=== PATIENT | female | born 1950 ===

== ENCOUNTER 2018-06-07 00:53 | Inpatient (IN) | payer MEDICARE ==
[2018-06-06 13:45] LABS: INR 0.95
[2018-06-07] VITALS (10 sets, daily range): BP systolic 100–136; BP diastolic 66–96
[~2018-06-07] VITALS: Ht 157.5 cm; Wt 134.3 kg
[~2018-06-07 00:53] MED LIST: ACET500T68 PO; HYDR-2966 PO; LEVO112T44 PO; LEVO25TA57 PO; LOSA50TA74 PO; NABU-95 PO; VENL75CA58 PO
[2018-06-07] MEDS ORDERED: CELECOXIB 200 MG CAP PO ONE (06:45)
[2018-06-07] MEDS ORDERED: MIDAZOLAM 2 MG/2 ML VIAL IVP PRN (06:45)
[2018-06-07] MEDS ORDERED: NORMOSOL R SOLN(*) 1000 ML BAG 1,000 ML IV PRN (06:45)
[2018-06-07] MEDS ORDERED: TRANEXAMIC AC 1000 MG/10ML SDV 1,000 MG in DEXTROSE 5% 50 ML BAG 50 ML IV ONE (06:45)
[2018-06-07] MEDS ORDERED: FAMOTIDINE 20 MG TAB PO ONE (06:45)
[2018-06-07] MEDS ORDERED: cloNIDine EPIDUR INJ 100MCG/ML 40 MCG, ROPIVACAINE 0.5% 20 ML VIAL 25 ML, EPINEPHrine H... INJ ONE (06:45)
[2018-06-07] MEDS ORDERED: BACITRACIN 50000 UNIT/VIAL 100,000 UNIT in NS 0.9% 3000 ML IRRIGATION BAG 3,000 ML IR ONE (06:45)
[2018-06-07] MEDS ORDERED: PREGABALIN 150 MG CAPSULE PO ONE (06:45)
[2018-06-07] MEDS ORDERED: ceFAZolin(*) 2GM/D5W 50ML 50 ML IVPB ONE (06:45)
[2018-06-07] MEDS ORDERED: ACETAMINOPHEN 500 MG TAB PO ONE (06:45)
[2018-06-07] MEDS ORDERED: LIDOCAINE/SOD BICARB 8.4% SYR ID ONE (06:45)
[2018-06-07] MEDS ORDERED: fentaNYL CITR 100 MCG/2 ML AMP ONE ×2 (07:12→08:27)
[2018-06-07] MEDS ORDERED: PROPOFOL EMUL(*) 10MG/ML 20 ML 20 ML ONE (07:13)
[2018-06-07] MEDS ORDERED: LIDOCAINE 2% IV 100 MG/5ML SYR ONE (07:13)
[2018-06-07] MEDS ORDERED: DEXAMETHASONE SOD PHOS 10MG/ML ONE (07:44)
[2018-06-07] MEDS ORDERED: ONDANSETRON 4 MG/2 ML VIAL ONE (07:44)
[2018-06-07] MEDS ORDERED: KETAMINE HCL 200 MG/20 ML MDV ONE ×2 (07:49→08:46)
[2018-06-07] MEDS ORDERED: NS 0.9% IRRIGATION 1000ML PLCT IR ONE (08:18)
[2018-06-07] MEDS ORDERED: BISACODYL 10 MG SUPP PR PRN (10:00)
[2018-06-07] MEDS ORDERED: FLUSH 10 ML SYR IVP PRN (10:00)
[2018-06-07] MEDS ORDERED: MAGNESIUM HYDROXIDE* 30ML UDCP PO PRN (10:00)
[2018-06-07] MEDS ORDERED: diphenhydrAMINE 25 MG CAP PO PRN (10:00)
[2018-06-07] MEDS ORDERED: MAGNESIUM CITRATE 300 ML BTL PO PRN (10:00)
[2018-06-07] MEDS ORDERED: ONDANSETRON 4 MG/2 ML VIAL IVP PRN (10:00)
[2018-06-07] MEDS ORDERED: PROMETHAZINE 25 MG/ML 1 ML AMP IVP PRN (10:00)
[2018-06-07] MEDS ORDERED: diphenhydrAMINE 50 MG/ML VIAL IVP PRN (10:00)
[2018-06-07] MEDS ORDERED: LR 1000 ML BAG 1000 ML IV PRN (10:00)
[2018-06-07] MEDS ORDERED: ZOLPIDEM TARTRATE 5 MG TAB PO PRN (10:00)
--- NOTE | 2018-06-07 11:34 | RADIOLOGY IMAGING REPORT ---
[place] [facility] [place]: Emilia Sanchez : 1950 MR: [id number] V: [id number] EXAM DATE: ORDERING PHYSICIAN: JACQUI FERREIRA TECHNOLOGIST: [place] [facility] [place] Em[place] : 1950 Visit/Account:[id number] Date of Sevice: 06/07/2018 Exam type: KNEE LIMITED RIGHT History: POST-OP RIGHT TKA Comparison: None. Findings: AP and lateral views of the right knee demonstrate a right knee arthroplasty in good anatomic limits. Soft tissue gas projects over the anterior aspect of this postoperative knee IMPRESSION: 1. As above Report Dictated By: Jolly Cook MD at 06/07/2018 11:29 AM Report E-Signed By: Jolly Cook MD at 06/07/2018 11:30 AM WSN:[email or web address]
[2018-06-07] MEDS ORDERED: ACET-1966 PO (11:58)
--- NOTE | 2018-06-07 12:23 | OPERATIVE REPORT 1 ---
EVENT DATE: June 07, 2018 SURGEON: Saurabh Avila MD ANESTHESIOLOGIST: Raza Gómez MD ANESTHESIA: General plus spinal. TEMPER MILL OPERATOR: Manolo Nunez PA-C PREOPERATIVE DIAGNOSIS Right knee osteoarthritis. POSTOPERATIVE DIAGNOSIS Right knee osteoarthritis. PROCEDURE PERFORMED Right total knee arthroplasty. FINDINGS The patient had a significant amount of arthritic changes within the knee. ESTIMATED BLOOD LOSS About 250 mL. DRAINS None. SPECIMENS [*] COMPLICATIONS None. TOURNIQUET TIME About 17 minutes only up during cementation. IMPLANTS USED [employer] Buysight posterior stabilized femur which was a size 7, with a size 7 x 5 rotating platform, posterior stabilized baseplate, a 6 rotating platform tibia, and a 35 mm anatomic patella. SPECIMENS None. INDICATIONS AND HISTORY This patient is a 68-year-old female that presented to my clinic for evaluation of knee pain and irrigation going on for some time. Her right knee was worse than her left and so she wanted to go ahead with a right total knee arthroplasty today 06/07/2018. The risk and benefits were discussed with the patient and informed consent was obtained at the last clinic visit. We talked about how with her obesity and overweight aspects, it may not last forever and she may continue to have problems and issues associated with it and she said she understood that. DESCRIPTION OF PROCEDURE As the patient was brought in the operating room, she and the procedure were both verified. She was placed supine on the operating table after being given a spinal by anesthesia and was induced and intubated. A timeout was observed verifying the correct patient and procedure after the right leg was prepped and draped in the usual fashion. The standard incision was made over the anterior aspect of the knee, taken through the skin and subcutaneous tissue where there was a significant amount of subcutaneous tissue in this area. We then were able to get down to the medial parapatellar approach and were able to go through the medial parapatellar approach without any difficulty. We then subluxed the knee cap to the lateral side and was able to go in and cut the anterior aspect of the menisci on both sides and also the anterior fat pad from underneath the patella. I also removed some of the synovitis on the superior aspect just above the femur. I then was able to flex the knee up and mike the patella and then removed some of the osteophytes and the rest of the ACL and the initial portion of the PCL. I then was able to take a rongeur and then clear off the essential portion, drilled the central canal for the intramedullary guide from the Attune system. Once I was able to drive the madeline through the middle portion, I was then able to set it on the standard [id number] cutting jig for the Attune system and cut the distal femur without any difficulty. I then sized the femur to a 7 and then put on the standard 7 four-in-one cutting block, cut all four cuts without any difficulty and then put on the notch plate and cut the notch without any major issues. I was then able to remove the PCL and the posterior aspect of the menisci and a little bit more of the lateral surface and then some of the osteophytes off the tibia. I then was able to drill the central portion of the tibial in the intramedullary aspect using the intramedullary guide once again to cut a couple of millimeters of the medial side. Once I was able to do this, I then was able to size the tibia to a size 6 tibia and then prepped the tibia without any difficulty. I then removed a significant amount of posterior osteophytes, especially on the medial side, but once I got the posterior osteophytes off of this area it looked significant better and there was better motion associated with the flexion and extension of knee. I then put on the trial components without any major difficulty and had good flexion and extension with a 5 mm poly. I then turned attention to the patella where I was able to cut the patella 9.5 mm off the patella without any difficulty. It was then sized to a 35 and then after placing a 35 trial on it tracked well with no external pressures through the patellar groove. I then was able to irrigate with copious amounts of saline with pulsatile lavage which I had throughout the case and then put up tourniquet, cemented the final components in place and then let the tourniquet down after about 17 minutes. I then closed the medial parapatellar approach with a #2 Stratafix, then followed by 2-0 Vicryl in the subcutaneous fat and then a 2-0 Stratafix in the subcuticular fashion and then a subcuticular running Monocryl which was 4-0 and then a bio-occlusive dressing. the patient was then awakened and extubated and transferred to the PACU in stable condition where she will be admitted overnight. CHEL
--- NOTE | 2018-06-07 13:17 | Hospitalist Consultation ---
History of Present Illness Requesting Physician Dr. Avila Reason for Consult Medical Management Chief Complaint s/p right knee replacement History of Present Illness She was admitted s/p right knee replacement. It is reported the surgery went well and without complication. History Problems: (1) Hypertension Status: Chronic (2) Hypothyroidism Status: Chronic (3) ROLANDO (obstructive sleep apnea) Status: Chronic (4) Depression Status: Chronic Home Meds Reported Medications Acetaminophen (TYLENOL) 325 Mg Tablet, 650 MG PO PRN, TAB 06/07/18 Levothyroxine Sodium (SYNTHROID) 112 Mcg Tablet, 2 TAB PO QDAY, TAB 05/31/18 Levothyroxine Sodium (SYNTHROID) 25 Mcg Tablet, 0.5 TAB PO QDAY 05/31/18 Losartan Potassium (LOSARTAN POTASSIUM) 50 Mg Tablet, 50 MG PO QDAY 05/31/18 Venlafaxine Hcl (EFFEXOR XR) 75 Mg Cap.er.24h, 3 TAB PO QDAY 05/31/18 Hydrochlorothiazide (HYDROCHLOROTHIAZIDE) 25 Mg Tablet, 1 TAB PO QDAY, TAB 05/31/18 Nabumetone (NABUMETONE) 750 Mg Tablet, 750 MG PO BID 05/31/18 Discontinued Reported Medications Acetaminophen (TYLENOL EXTRA STRENGTH) 500 Mg Tablet, 650 MG PO PRN, TAB 05/31/18 Allergies: Coded Allergies: No Known Drug Allergies (Unverified , 05/31/18) Patient History: FH: COPD (chronic obstructive pulmonary disease) MOTHER, FH: lung disease FATHER, Hx Smoking: Yes (1 PPD DAILY FOR 13 YRS QUIT IN 1988) Smoking Status: Former Smoker Caffeine Intake: Coffee, Soda Caffeine/Cups Per Day: 2 CUPS DAILY, 32 OUNCES DAILY Hx Alcohol Use: Yes Hx Substance Use Disorder: No Social Drug Use: Never History of IV Drug Use: No Review of Systems All Systems Reviewed/Normal: Yes, Except as Noted Exam Vital Signs Vital Signs Date Time Temp Pulse Resp B/P (MAP) Pulse Ox O2 Delivery O2 Flow Rate FiO2 06/07/18 13:00 76 136/78 (97) 93 06/07/18 12:03 Nasal Cannula 3.0 06/07/18 11:51 96.4 16 General Appearance: No Acute Distress, Afebrile Cardiovascular: Regular Rate and Rhythm Respiratory: No Respiratory Distress, Clear to Auscultation Psych: Other (patient sleeping through exam) Assessment and Plan Problems: (1) Status post right knee replacement Status: Acute Assessment & Plan: Followed by Dr. Avila. She will be placed on Aspirin for VTE prophylaxis. She has no history of DVT or PE. (2) Hypertension Status: Chronic Assessment & Plan: She is on chronic treatment with Losartan and Hydrochlorothiazide. Losartan has been restarted with hold parameters. (3) Hypothyroidism Status: Chronic Assessment & Plan: She is on chronic treatment with Levothyroxine. (4) Depression Status: Chronic Assessment & Plan: She is on chronic treatment with Effexor. (5) ROLANDO (obstructive sleep apnea) Status: Chronic Assessment & Plan: She did bring her own CPAP machine to use during admission. Venous Thromboembolism Antithrombotics Is Pt On Any Antithrombotics?: No Exam Sepsis Risk: No Definite Risk Problem Qualifiers (1) Hypertension: Hypertension type: essential hypertension Qualified Codes: I10 - Essential (primary) hypertension MENDY TOWNSENDP Jun 07, 2018 13:17
[2018-06-07] MEDS: ceFAZolin(*) 2GM/D5W 50ML 50 ML IVPB SCH (17:12)
[2018-06-07] MEDS: HYDROmorphone HCL 2 MG/ML SDV IVP PRN (17:19)
[2018-06-07] MEDS ORDERED: NS(*) 0.9% 250 ML BAG 250 ML ONE (17:29)
[2018-06-07] MEDS ORDERED: CALCIUM CARBONATE 500 MG CHEW PO PRN (19:35)
[2018-06-07] MEDS: ASPIRIN 325 MG TAB PO SCH (21:25)
[2018-06-08] VITALS (7 sets, daily range): BP systolic 105–163; BP diastolic 55–93; Ht 157.5 cm; Wt 134.3 kg
[2018-06-08] MEDS: ceFAZolin(*) 2GM/D5W 50ML 50 ML IVPB SCH ×2 (00:18→08:55)
[2018-06-08] MEDS: LEVOTHYROXINE SOD 0.025 MG TAB PO SCH (05:41)
[2018-06-08] MEDS: LEVOTHYROXINE SOD 0.112 MG TAB PO SCH (05:41)
[2018-06-08] MEDS: VENLAFAXINE XR 75 MG CAPCR PO SCH (08:54)
[2018-06-08] MEDS: LOSARTAN POTASSIUM 50 MG TAB PO SCH (08:55)
--- NOTE | 2018-06-08 09:53 | Hospitalist Progress Note ---
Subjective Progress Notes Subjective She has no complaints this morning. She had no acute events overnight. Patient Complains of: Cardiovascular: No: Chest Pain Respiratory: No: Shortness of Breath Physical Exam Vital Signs Date Time Temp Pulse Resp B/P (MAP) Pulse Ox O2 Delivery O2 Flow Rate FiO2 06/08/18 08:54 125/59 (81) 06/08/18 07:35 95 Nasal Cannula 3.0 06/08/18 07:20 98.3 74 16 Intake and Output 06/08/18 07:00 Intake Total 2370 ml Balance 2370 ml Intake Oral 120 ml IV Total 2250 ml # Voids 1 General Appearance: Alert, Awake, No Acute Distress, Afebrile Neuro: No Gross deficits Cardiovascular: Regular Rate and Rhythm Respiratory: No Respiratory Distress, Clear to Auscultation GI: Soft and Non-Tender Psych: Alert & Oriented X3, Appropriate Mood & Affect Result Diagram: 06/08/18 0526 Assessment and Plan Problems: (1) Status post right knee replacement Status: Acute Assessment & Plan: Followed by Dr. Avila. She will be placed on Aspirin for VTE prophylaxis. She has no history of DVT or PE. She has not been moving well yet. Spoke with patient, we will consider changing to Xarelto if she doesn't improve in ambulation. (2) Hypertension Status: Chronic Assessment & Plan: She is on chronic treatment with Losartan and Hydrochlorothiazide. Losartan has been restarted with hold parameters. (3) Hypothyroidism Status: Chronic Assessment & Plan: She is on chronic treatment with Levothyroxine. (4) Depression Status: Chronic Assessment & Plan: She is on chronic treatment with Effexor. (5) ROLANDO (obstructive sleep apnea) Status: Chronic Assessment & Plan: She did bring her own CPAP machine to use during admission. (6) Morbid obesity with BMI of 50.0-59.9, adult Exam Sepsis Risk: No Definite Risk Problem Qualifiers (1) Hypertension: Hypertension type: essential hypertension Qualified Codes: I10 - Essential (primary) hypertension MENDY TOWNSEND SHOTBLAST EQUIPMENT OPERATOR Jun 08, 2018 09:53
[2018-06-08] MEDS: HYDROmorphone HCL 2 MG/ML SDV IVP PRN (14:27)
[2018-06-08] MEDS: ASPIRIN 325 MG TAB PO SCH (20:31)
[2018-06-09 03:40] VITALS: BP 147/62
[2018-06-09] MEDS: LEVOTHYROXINE SOD 0.025 MG TAB PO SCH (05:34)
[2018-06-09] MEDS: LEVOTHYROXINE SOD 0.112 MG TAB PO SCH (05:34)
[2018-06-09 09:00] VITALS: BP 140/74
[2018-06-09] MEDS: VENLAFAXINE XR 75 MG CAPCR PO SCH (09:07)
[2018-06-09] MEDS: LOSARTAN POTASSIUM 50 MG TAB PO SCH (09:07)
[2018-06-09] MEDS: RIVAROXABAN 10 MG TAB PO SCH (09:07)
--- NOTE | 2018-06-09 10:13 | Hospitalist Progress Note ---
Subjective Progress Notes Subjective She has not been moving well post-operatively. She has no complaints this morning. Patient Complains of: Cardiovascular: No: Chest Pain Respiratory: No: Shortness of Breath Physical Exam Vital Signs Date Time Temp Pulse Resp B/P (MAP) Pulse Ox O2 Delivery O2 Flow Rate FiO2 06/09/18 09:00 98.6 70 16 140/74 (96) Nasal Cannula 3.0 06/08/18 23:00 92 Intake and Output 06/09/18 01:00 Intake Total 494 ml Balance 494 ml Intake Oral 444 ml IV Total 50 ml # Voids 3 General Appearance: Alert, Awake, No Acute Distress, Afebrile Neuro: No Gross deficits Cardiovascular: Regular Rate and Rhythm Respiratory: No Respiratory Distress, Clear to Auscultation GI: Soft and Non-Tender Psych: Alert & Oriented X3, Appropriate Mood & Affect Result Diagram: 06/09/18 0513 Assessment and Plan Problems: (1) Status post right knee replacement Status: Acute Assessment & Plan: Followed by Dr. Avila. She was placed on Aspirin for VTE p rophylaxis, but was not been progressing well with PT. She has no history of DVT or PE. She will be switched to Xarelto for DVT prophylaxis. (2) Hypertension Status: Chronic Assessment & Plan: She is on chronic treatment with Losartan and Hydrochlorothiazide. Losartan has been restarted with hold parameters. (3) Hypothyroidism Status: Chronic Assessment & Plan: She is on chronic treatment with Levothyroxine. (4) Depression Status: Chronic Assessment & Plan: She is on chronic treatment with Effexor. (5) ROLANDO (obstructive sleep apnea) Status: Chronic Assessment & Plan: She did bring her own CPAP machine to use during admission. (6) Morbid obesity with BMI of 50.0-59.9, adult Status: Chronic Exam Sepsis Risk: No Definite Risk Problem Qualifiers (1) Hypertension: Hypertension type: essential hypertension Qualified Codes: I10 - Essential (primary) hypertension MENDY TOWNSEND AFTER SCHOOL PROGRAM DIRECTOR Jun 09, 2018 10:13
[2018-06-09 11:46] VITALS: BP 138/69
[2018-06-09 20:17] VITALS: BP 154/80
[2018-06-09 23:24] VITALS: BP 152/78
[2018-06-10] MEDS: LEVOTHYROXINE SOD 0.112 MG TAB PO SCH (06:00)
[2018-06-10] MEDS: LEVOTHYROXINE SOD 0.025 MG TAB PO SCH (06:01)
[2018-06-10] MEDS ORDERED: PER PO (08:00)
[2018-06-10] MEDS ORDERED: RIV10 PO (08:28)
[2018-06-10] MEDS: VENLAFAXINE XR 75 MG CAPCR PO SCH (08:58)
[2018-06-10] MEDS: RIVAROXABAN 10 MG TAB PO SCH (08:59)
[2018-06-10] MEDS: LOSARTAN POTASSIUM 50 MG TAB PO SCH (09:00)
[2018-06-10] MEDS ORDERED: HYDROCHLOROTHIAZIDE 25 MG TAB PO SCH (09:00)
[2018-06-10 09:08] VITALS: BP 138/59
--- NOTE | 2018-06-10 09:41 | Hospitalist Progress Note ---
Subjective Progress Notes Subjective She has no complaints this morning. She had no acute events overnight. Patient Complains of: Cardiovascular: No: Chest Pain Respiratory: No: Shortness of Breath Physical Exam Vital Signs Date Time Temp Pulse Resp B/P (MAP) Pulse Ox O2 Delivery O2 Flow Rate FiO2 06/10/18 09:08 98.8 71 16 138/59 (85) 92 Nasal Cannula 4.0 Intake and Output 06/10/18 07:00 Intake Total 1664 ml Balance 1664 ml Intake Oral 1664 ml # Voids 2 # Bowel Movements 2 General Appearance: Alert, Awake, No Acute Distress, Afebrile Neuro: No Gross deficits Cardiovascular: Regular Rate and Rhythm Respiratory: No Respiratory Distress, Clear to Auscultation GI: Soft and Non-Tender Psych: Alert & Oriented X3, Appropriate Mood & Affect Result Diagram: 06/10/18 0515 Assessment and Plan Problems: (1) Status post right knee replacement Status: Acute Assessment & Plan: Followed by Dr. Avila. She was placed on Aspirin for VTE prophylaxis, but was not been progressing well with PT. She has no history of DVT or PE. She was switched to Xarelto for DVT prophylaxis. (2) Hypertension Status: Chronic Assessment & Plan: She is on chronic treatment with Losartan and Hydrochlorothiazide. Losartan and hydrochlorothiazide were restarted with hold parameters. (3) Hypothyroidism Status: Chronic Assessment & Plan: She is on chronic treatment with Levothyroxine. (4) Depression Status: Chronic Assessment & Plan: She is on chronic treatment with Effexor. (5) ROLANDO (obstructive sleep apnea) Status: Chronic Assessment & Plan: She did bring her own CPAP machine to use during admission. (6) Morbid obesity with BMI of 50.0-59.9, adult Status: Chronic Exam Sepsis Risk: No Definite Risk Problem Qualifiers (1) Hypertension: Hypertension type: essential hypertension Qualified Codes: I10 - Essential (primary) hypertension MENDY TOWNSENDP Jun 10, 2018 09:41
== END 2018-06-10 13:25 | DRG 470 ==
LOC: OR 00:53 → MED 11:45 → OBSVTOIN 06-09
PROVIDERS: ADMIT Orthopaedic Surgery; ATTEND Orthopaedic Surgery
PROC: 0SRC0J9 Replacement of Right Knee Joint with Synthetic Substitute, Cemented, Open Approach (ICD-10-PCS; principal; 2018-06-09)
DX: M17.0 Bilateral primary osteoarthritis of knee (principal); Z68.43 Body mass index [BMI] 50.0-59.9, adult; I10 Essential (primary) hypertension; M25.761 Osteophyte, right knee; G47.33 Obstructive sleep apnea (adult) (pediatric); E66.01 Morbid (severe) obesity due to excess calories; F32.9 Major depressive disorder, single episode, unspecified; E03.9 Hypothyroidism, unspecified; Z87.891 Personal history of nicotine dependence; Z99.81 Dependence on supplemental oxygen; Z90.710 Acquired absence of both cervix and uterus
CPT/HCPCS: 36415; 85014; 85018; 85610; 86850; 86900; 86901; 97161; C1713; C1776; G0378; J0171; J0690; J0735; J1100; J1170; J1885; J2001; J2250; J2405; J2704; J2795; J3010; J3490; J7050; J7060

== ENCOUNTER 2018-10-25 01:01 | Inpatient (IN) | payer MEDICARE ==
[2018-06-08 12:48] VITALS: Ht 160 cm; Wt 133.4 kg
[2018-10-24 14:17] LABS: INR 0.94
[2018-10-25] VITALS (16 sets, daily range): BP systolic 107–142; BP diastolic 56–79
[~2018-10-25] VITALS: Ht 160 cm; Wt 133.4 kg
[~2018-10-25 01:01] MED LIST changes: +ACET-1966 PO; +CALC600T63 PO; +CHOL10005 PO; +LOSA100T75 PO; -LOSA50TA74 PO; +LOSA50TA80 PO; +PER PO; +RIV10 PO
[2018-10-25] MEDS ORDERED: ACETAMINOPHEN 500 MG TAB PO ONE (06:45)
[2018-10-25] MEDS ORDERED: NORMOSOL R SOLN(*) 1000 ML BAG 1,000 ML IV PRN (06:45)
[2018-10-25] MEDS ORDERED: FAMOTIDINE 20 MG TAB PO ONE (06:45)
[2018-10-25] MEDS ORDERED: PREGABALIN 150 MG CAPSULE PO ONE (06:45)
[2018-10-25] MEDS ORDERED: ROPIVACAINE/EPI/CLONIDINE/KET 50 ML SYRINGE INJ ONE (06:45)
[2018-10-25] MEDS ORDERED: CELECOXIB 200 MG CAP PO ONE (06:45)
[2018-10-25] MEDS ORDERED: TRANEXAMIC AC 1000 MG/10ML SDV 1,000 MG in DEXTROSE 5% 50 ML BAG 50 ML IV ONE (06:45)
[2018-10-25] MEDS ORDERED: ceFAZolin(*) 2GM/D5W 50ML 50 ML IVPB ONE (06:45)
[2018-10-25] MEDS ORDERED: BACITRACIN 50000 UNIT/VIAL 100,000 UNIT in NS 0.9% 3000 ML IRRIGATION BAG 3,000 ML IR ONE (06:45)
[2018-10-25] MEDS ORDERED: MIDAZOLAM 2 MG/2 ML VIAL IVP PRN (06:45)
[2018-10-25] MEDS ORDERED: LIDOCAINE/SOD BICARB 8.4% SYR ID ONE (06:45)
[2018-10-25] MEDS ORDERED: KETAMINE HCL-NS 50 MG/5 ML SYR ONE (06:59)
[2018-10-25] MEDS ORDERED: fentaNYL CITR 100 MCG/2 ML AMP ONE (06:59)
[2018-10-25] MEDS ORDERED: LIDOCAINE MPF 1% 5 ML VIAL ONE (06:59)
[2018-10-25] MEDS ORDERED: ONDANSETRON 4 MG/2 ML VIAL ONE (06:59)
[2018-10-25] MEDS ORDERED: PROPOFOL EMUL(*) 10MG/ML 20 ML 20 ML ONE (06:59)
[2018-10-25] MEDS ORDERED: SUGAMMADEX SOD 500 MG/5 ML SDV ONE (06:59)
[2018-10-25] MEDS ORDERED: GLYCOPYRROLATE 0.2MG/ML 1 ML INJ ONE (07:52)
[2018-10-25] MEDS ORDERED: PHENYLEPHRINE 10 MG/1 ML VIAL ONE (07:53)
[2018-10-25] MEDS ORDERED: NORMOSOL R SOLN(*) 1000 ML BAG 1,000 ML IV ONE (09:56)
[2018-10-25] MEDS ORDERED: diphenhydrAMINE 25 MG CAP PO PRN (10:50)
[2018-10-25] MEDS ORDERED: MAGNESIUM CITRATE 300 ML BTL PO PRN (10:50)
[2018-10-25] MEDS ORDERED: LR 1000 ML BAG 1000 ML IV PRN (10:50)
[2018-10-25] MEDS ORDERED: PROMETHAZINE 25 MG/ML 1 ML AMP IVP PRN (10:50)
[2018-10-25] MEDS ORDERED: HYDROmorphone HCL 2 MG/ML SDV IVP PRN (10:50)
[2018-10-25] MEDS ORDERED: ONDANSETRON 4 MG/2 ML VIAL IVP PRN (10:50)
[2018-10-25] MEDS ORDERED: FLUSH 10 ML SYR IVP PRN (10:50)
[2018-10-25] MEDS ORDERED: BISACODYL 10 MG SUPP PR PRN (10:50)
[2018-10-25] MEDS ORDERED: diphenhydrAMINE 50 MG/ML VIAL IVP PRN (10:50)
[2018-10-25] MEDS ORDERED: ZOLPIDEM TARTRATE 5 MG TAB PO PRN (10:50)
[2018-10-25] MEDS ORDERED: MAGNESIUM HYDROXIDE* 30ML UDCP PO PRN (10:50)
--- NOTE | 2018-10-25 11:29 | RADIOLOGY IMAGING REPORT ---
FACILITY: [facility] [place] PATIENT NAME: Emilia Sanchez : 1950 MR: [id number] V: [id number] EXAM DATE: ORDERING PHYSICIAN: JACQUI FERREIRA TECHNOLOGIST: Location: [facility] Patient: Emilia Sanchez : 1950 Visit/Account:[id number] Date of Sevice: 10/25/2018 Exam type: KNEE LIMITED LEFT History: S/P TOTAL KNEE ARTHROPLASTY, CHECK PLACEMENT. Comparison: None. Findings: Two views the left knee demonstrate a left knee arthroplasty in good anatomic alignment. Soft tissue gas projects over the anterior aspect this postoperative knee IMPRESSION: 1. Left knee arthroplasty appears in good anatomic alignment Report Dictated By: Jolly Cook MD at 10/25/2018 10:52 AM Report E-Signed By: Jolly Cook MD at 10/25/2018 11:26 AM WSN:[email or web address]
--- NOTE | 2018-10-25 11:47 | NUR ---
Physical Therapy Impression PT eval complete. Pt completed bed mobility with SBA supine to sit and Steve sit to supine. CGA for STS transfer and side step to HOB with use of RW. PT donned pt's shoes prior to standing. Pt with good tolerance to mobility and supine LE ther-ex. She reports that she would like to d/c with OP PT services. CPM fit and runnin 0-30 degrees at end of session. Physical Therapy Goals 1: Pt to complete bed mobility with Steve 2: Pt to complete transfers with SBA and RW 3: Pt to ambulate 150' with SBA and RW 4: Pt to asc/desc 3 stairs without railing and CGA. Patient's Goals
--- NOTE | 2018-10-25 11:57 | OPERATIVE REPORT 1 ---
EVENT DATE: October 25, 2018 SURGEON: Saurabh Avila MD ANESTHESIOLOGIST: José Miguel Hess MD ANESTHESIA: General plus spinal. CONTRACTOR GENERAL ENGINEERING: CARL Flores, HAT MENDER PREOPERATIVE DIAGNOSIS Left knee osteoarthritis. POSTOPERATIVE DIAGNOSIS Left knee osteoarthritis. PROCEDURE PERFORMED Left total knee arthroplasty. FINDINGS The patient had a significant amount of arthritic changes within the knee but was amenable for a total knee replacement. ESTIMATED BLOOD LOSS 250 mL. DRAINS None. COMPLICATIONS None. TOURNIQUET TIME About 16 minutes, which was only up during the instrumentation portion. IMPLANTS USED VenX Medical[employer] posterior stabilized total knee system with a 7 femur, a 7 x 6 mm poly insert, a 6 tibia and a 35 anatomic patella. SPECIMENS None. INDICATIONS AND HISTORY This patient is a 68-year-old female that presented to my clinic for evaluation of bilateral knee pain and irritation going on for some time. We had replaced the right knee and she wanted to go ahead with the left knee at this time as her right knee had done better so, therefore, we got her set up to do this. The risks and benefits were discussed with the patient and informed consent was obtained at the last clinic visit. DESCRIPTION OF PROCEDURE The patient was brought into the operating room. She and the procedure were both verified. She was placed in the lateral decubitus position and given a spinal by Dr. Hess. She then was turned to the supine position and induced and intubated by Dr. Hess and then the left leg was prepped and draped in the usual fashion and a time-out was observed, verifying the correct patient and procedure. After making the standard skin incision over the anterior aspect of the knee, I was able to cut through the skin and subcutaneous tissue until I got down to a medial parapatellar approach. I cauterized all bleeders along the way in order to get a nice clean field. I then did the medial parapatellar approach without any difficulty. We were then able to remove the anterior aspects of the meniscus on the lateral and medial side and also removal out of the fat pad on the posterior aspect edges behind the patella. I then removed some patella osteophytes and then also removed the superior synovitis in the top part of the femur and removed some osteophytes off the femur and the proximal tibia itself. I then was able to flex the knee up and remove the ACL and PCL without any major difficulty. I was then able to drill centrally down the femur and then using the Attune system for the intramedullary system I was able to cut the standard 9 mm off the distal femur with majority of the cut coming on the medial side, where the majority of the arthritis was. This was done followed by placement of the sizing block, which I sized to a 7, which was what we had in the contralateral side. I then put in the size 7 four-in-one cutting block. I cut the anterior and posterior aspects and then pulled the pins and cut the chamfer cuts without any difficulty. This was then followed by the notch cutting block, where I was able to cut the notch without any major issues associated with this also. I then was able to remove some of the posterior osteophytes off the posterior aspect of the femur and then turned our attention to the tibia. Once on the tibia, I was able to sublux the tibia forward using a single prone retractor and double prong retractor on the lateral side. I then cleaned up the posterior aspect of the meniscus on each side and also removed some of the osteophytes to this area. I then was able to drill intramedullary and use the intramedullary Attune guide once again for the proximal tibia, pinned it in place and then cut according to a 3 mm cut, which we typically do. Once I cut the proximal tibia, I was then able to remove the rest of the bone spurs as there were large bone spurs on the posterior aspect of the tibia on this side and we were able to remove those from the femur and get a nice clean posterior aspect of the knee itself. I then sized the tibia to a 6. We put in the centered notch cutting block in the keel and then were able to make sure it was lined up with the tibia throughout the whole thing and it looked very good. I then was able to put trial components in, which the 6 mm poly fit better than the 5 and was not too tight so, therefore, this was the one that was chosen. We then also everted the patella and cut the patella using the standard cutting guides and then sized it to a 35 mm patella. Everything looked very good so, therefore, we then inflated the tourniquet after exsanguinating the limb and then cemented in the components without any difficulty. Once the cement was hardened, we deflated the tourniquet, put in the pain cocktail and then were able to irrigate with a copious amount of saline, which we had throughout the case. I then was able to close the parapatellar approach with a #2 Quill. This was then followed by 2-0 Vicryl in the subcutaneous tissue and then a subcutaneous 2-0 Quill followed by 4-0 Monocryl and a bio-oclusive dressing. The patient was then wrapped up and awakened and extubated and transported to PACU in stable condition. CHEL
--- NOTE | 2018-10-25 11:58 | Hospitalist Consultation ---
History of Present Illness Requesting Physician Dr. Avila Reason for Consult Medical Management Chief Complaint s/p left total knee replacement History of Present Illness She was admitted s/p left total knee replacement. It is reported the surgery went well and without complication. History Problems: (1) Hypothyroidism Status: Chronic (2) Depression Status: Chronic (3) Hypertension Status: Chronic (4) ROLANDO (obstructive sleep apnea) Status: Chronic Home Meds Reported Medications Cholecalciferol (Vitamin D3) (VITAMIN D3) 1,000 Unit Tablet, 5000 UNIT PO DAILY, TAB 10/18/18 Calcium Carbonate (CALCIUM) 600 Mg Tablet, 1200 MG PO DAILY 10/18/18 Losartan Potassium (LOSARTAN POTASSIUM) 100 Mg Tablet, 100 MG PO QDAY 10/18/18 Levothyroxine Sodium (SYNTHROID) 112 Mcg Tablet, 2 TAB PO QDAY, TAB 05/31/18 Levothyroxine Sodium (SYNTHROID) 25 Mcg Tablet, 0.5 TAB PO QDAY 05/31/18 Venlafaxine Hcl (EFFEXOR XR) 75 Mg Cap.er.24h, 3 TAB PO QDAY 05/31/18 Hydrochlorothiazide (HYDROCHLOROTHIAZIDE) 25 Mg Tablet, 1 TAB PO QDAY, TAB 05/31/18 Discontinued Reported Medications Oxycodone/Acetaminophen (OXYCODONE/ACETAMINOPHEN 5MG/325 MG) 5 Mg/325 Mg Tab, 1 TAB PO Q4-6H PRN for PAIN, #40 0 Refills 06/10/18 Acetaminophen (TYLENOL) 325 Mg Tablet, 650 MG PO PRN, TAB 06/07/18 Losartan Potassium (LOSARTAN POTASSIUM) 50 Mg Tablet, 50 MG PO QDAY 05/31/18 Discontinued Scripts Rivaroxaban (XARELTO 10 MG TAB (OR EQUIV)) 10 Mg Tablet, 10 MG PO QDAY, #30 TAB Prov:MENDY TOWNSEND SILK [employer]IMMER 06/10/18 Allergies: Coded Allergies: No Known Drug Allergies (Unverified , 05/31/18) Patient History: FH: COPD (chronic obstructive pulmonary disease) MOTHER, FH: lung disease FATHER, Hx Smoking: Yes (1 PPD DAILY FOR 13 YRS QUIT IN 1988) Smoking Status: Former Smoker Exposure to Second Hand Smoke?: No Caffeine Intake: Coffee, Soda Caffeine/Cups Per Day: 2 CUPS DAILY, 32 OUNCES DAILY Hx Alcohol Use: Yes Hx Substance Use Disorder: No Social Drug Use: Never Review of Systems All Systems Reviewed/Normal: Yes, Except as Noted Exam Vital Signs Vital Signs Date Time Temp Pulse Resp B/P (MAP) Pulse Ox O2 Delivery O2 Flow Rate FiO2 10/25/18 11:12 92 Nasal Cannula 2.0 10/25/18 11:02 98.1 65 16 118/66 (83) General Appearance: Alert, Awake, No Acute Distress, Afebrile Neuro: No Gross deficits Cardiovascular: Regular Rate and Rhythm Respiratory: No Respiratory Distress, Clear to Auscultation Psych: Alert & Oriented X3, Appropriate Mood & Affect Assessment and Plan Problems: (1) Status post total left knee replacement Status: Acute Assessment & Plan: Followed by Dr. Avila. She will be placed on Aspirin for VTE prophylaxis. She has no history of DVT or PE. (2) Hypertension Status: Chronic Assessment & Plan: She is on chronic treatment with Losartan and Hydrochlorothiazide. These have been restarted with hold parameters. (3) Hypothyroidism Status: Chronic Assessment & Plan: She is on chronic treatment with Levothyroxine. (4) Depression Status: Chronic Assessment & Plan: She is on chronic treatment with Effexor. (5) ROLANDO (obstructive sleep apnea) Status: Chronic Assessment & Plan: She did bring her own CPAP machine to use during admission. (6) Morbid obesity with BMI of 50.0-59.9, adult Status: Chronic Venous Thromboembolism Antithrombotics Is Pt On Any Antithrombotics?: No Exam Sepsis Risk: No Definite Risk MENDY TOWNSEND Oct 25, 2018 11:58
[2018-10-25] MEDS: ceFAZolin(*) 2GM/D5W 50ML 50 ML IVPB SCH ×2 (16:20→23:43)
[2018-10-25] MEDS ORDERED: ASPIRIN 325 MG TAB PO SCH (21:00)
[2018-10-26 04:07] VITALS: BP 134/74
[2018-10-26] MEDS ORDERED: LEVOTHYROXINE SOD PO SCH (06:00)
[2018-10-26 08:35] VITALS: BP 127/72
[2018-10-26] MEDS: ceFAZolin(*) 2GM/D5W 50ML 50 ML IVPB SCH (08:38)
[2018-10-26] MEDS ORDERED: LOSARTAN POTASSIUM 50 MG TAB PO SCH (09:00)
[2018-10-26] MEDS ORDERED: HYDROCHLOROTHIAZIDE 25 MG TAB PO SCH (09:00)
[2018-10-26] MEDS ORDERED: VENLAFAXINE XR 75 MG CAPCR PO SCH (09:00)
[2018-10-26] MEDS ORDERED: LEVOTHYROXINE SOD 0.112 MG TAB PO SCH (09:00)
[2018-10-26] MEDS ORDERED: LEVOTHYROXINE SODIUM PO SCH (09:00)
[2018-10-26] MEDS ORDERED: OXYC-865 PO (09:01)
[2018-10-26] MEDS ORDERED: ASPI-757 PO (09:36)
--- NOTE | 2018-10-26 09:49 | NUR ---
Physical Therapy Impression Pt wishes to discharge home. Pt safe for DC home as she demonstrated safety with functional mobility including stairs. Pt instructed in HEP and handout provided. Pt declined to take home CPM. Offered to set up first PT appointment, Pt states she can set up her own appointment. Signed OP PT referral placed in discharge folder. Physical Therapy Goals 1: Pt to complete bed mobility with Steve 2: Pt to complete transfers with SBA and RW 3: Pt to ambulate 150' with SBA and RW 4: Pt to asc/desc 3 stairs without railing and CGA. Patient's Goals
--- NOTE | 2018-10-26 13:18 | Hospitalist Progress Note ---
Subjective Progress Notes Subjective She was admitted s/p knee replacement. She had no acute events overnight. She has no complaints this morning. Patient Complains of: Cardiovascular: No: Chest Pain Respiratory: No: Shortness of Breath Physical Exam Vital Signs Date Time Temp Pulse Resp B/P (MAP) Pulse Ox O2 Delivery O2 Flow Rate FiO2 10/26/18 09:55 92 10/26/18 09:46 Nasal Cannula 0.5 10/26/18 08:35 98.8 59 12 127/72 (90) Intake and Output 10/26/18 07:00 Intake Total 4513 ml Output Total 200 ml Balance 4313 ml Intake Oral 2362 ml IV Total 2151 ml Output Estimated Blood Loss 200 ml # Voids 5 General Appearance: Alert, Awake, No Acute Distress, Afebrile Neuro: No Gross deficits Cardiovascular: Regular Rate and Rhythm Respiratory: No Respiratory Distress, Clear to Auscultation Psych: Alert & Oriented X3, Appropriate Mood & Affect Result Diagram: 10/26/18 0554 Assessment and Plan Problems: (1) Status post total left knee replacement Status: Acute Assessment & Plan: Followed by Dr. Avila. She will be placed on Aspirin for VTE prophylaxis. She has no history of DVT or PE. (2) Hypertension Status: Chronic Assessment & Plan: She is on chronic treatment with Losartan and Hydrochlorothiazide. These have been restarted with hold parameters. (3) Hypothyroidism Status: Chronic Assessment & Plan: She is on chronic treatment with Levothyroxine. (4) Depression Status: Chronic Assessment & Plan: She is on chronic treatment with Effexor. (5) ROLANDO (obstructive sleep apnea) Status: Chronic Assessment & Plan: She did bring her own CPAP machine to use during admission. (6) Morbid obesity with BMI of 50.0-59.9, adult Status: Chronic Exam Sepsis Risk: No Definite Risk MENDY TOWNSEND Oct 26, 2018 13:18
== END 2018-10-26 10:57 | disposition home or self-care (01) | DRG 470 ==
LOC: OR 01:01 → MED 10:56
PROVIDERS: ADMIT Orthopaedic Surgery; ATTEND Orthopaedic Surgery
PROC: 5A09357 Assistance with Respiratory Ventilation, Less than 24 Consecutive Hours, Continuous Positive Airway Pressure (ICD-10-PCS; 2018-10-25)
PROC: 0SRD0J9 Replacement of Left Knee Joint with Synthetic Substitute, Cemented, Open Approach (ICD-10-PCS; principal; 2018-10-25 07:25)
DX: M17.12 Unilateral primary osteoarthritis, left knee (principal); Z68.43 Body mass index [BMI] 50.0-59.9, adult; I10 Essential (primary) hypertension; F32.9 Major depressive disorder, single episode, unspecified; G47.33 Obstructive sleep apnea (adult) (pediatric); E03.9 Hypothyroidism, unspecified; E66.01 Morbid (severe) obesity due to excess calories; Z96.651 Presence of right artificial knee joint; Z99.81 Dependence on supplemental oxygen; Z87.891 Personal history of nicotine dependence; Z90.710 Acquired absence of both cervix and uterus
CPT/HCPCS: 36415; 85014; 85018; 85610; 86850; 86900; 86901; 97161; C1713; C1776; J0690; J2001; J2250; J2370; J2405; J2704; J3010; J3490; J7060